=== PATIENT | male | born 1955 | race Caucasian/White ===

== ENCOUNTER 2022-03-26 08:41 | Outpatient (CLI) | payer BC, SELFPAY ==
[2022-03-26 14:25] LABS: Albumin* 4.8 g/dL (3.3-5.0); Chloride* 104 mmol/L (96-114)
[2022-03-26 14:26] LABS: Sodium* 141 mmol/L (135-149)
[2022-03-26 14:28] LABS: Alanine Aminotransferase* 24 U/L (4-50); Alkaline Phosphatase* 93 U/L (40-150); Aspartate Amino Transferase* 59 U/L (12-35); Bilirubin Total* 0.8 mg/dL (0.1-1.5); Blood Urea Nitrogen* 13 mg/dL (7-30); Carbon Dioxide* 20 mmol/L (20-32); Cholesterol* 197 mg/dL (90-199); Creatinine* 0.8 mg/dL (0.5-1.5); Estimated Glomerular Filt Rate 99 ml/min; Glucose* 99 mg/dL (60-115); Total Protein* 7.6 g/dL (6.0-8.3); Triglycerides* 190 mg/dL (40-149)
[2022-03-26 14:29] LABS: Calcium* 9.4 mg/dL (8.4-10.6); HDL Cholesterol* 80 mg/dL (>=40); LDL Cholesterol Calculated 79 mg/dL (<100)
[2022-03-26 14:59] LABS: PSA Screen* 1.13 ng/mL (0.10-4.00)
== END 2022-03-26 08:42 | disposition home or self-care (01) ==
PROVIDERS: PCP Family Medicine; Visit Provider Family Medicine
DX: Z00.00 Encounter for general adult medical examination without abnormal findings (principal); E78.5 Hyperlipidemia, unspecified; I10 Essential (primary) hypertension; E03.9 Hypothyroidism, unspecified; Z12.5 Encounter for screening for malignant neoplasm of prostate
CPT/HCPCS: 80053; 80061; 84153; 84443

== ENCOUNTER 2022-07-02 14:27 | Outpatient (CLI) | payer OTHER, SELFPAY | END 2022-07-02 14:28 | disposition home or self-care (01) | LOC: LKVREF 14:28 | PROVIDERS: PCP Family Medicine; Visit Provider Family Medicine | DX: Z01.818 Encounter for other preprocedural examination (principal); E03.9 Hypothyroidism, unspecified; I10 Essential (primary) hypertension; I82.409 Acute embolism and thrombosis of unspecified deep veins of unspecified lower extremity | CPT/HCPCS: 84443 ==

== ENCOUNTER 2022-09-26 13:45 | Outpatient (RCR) | payer OTHER, SELFPAY | END 2022-12-26 13:12 | disposition home or self-care (01) | PROVIDERS: PCP Family Medicine; Visit Provider Orthopaedic Surgery | DX: Z47.89 Encounter for other orthopedic aftercare (principal); Z51.89 Encounter for other specified aftercare | CPT/HCPCS: 97016; 97110; 97112; 97140; 97161 ==

== ENCOUNTER 2023-07-31 11:00 | Outpatient (CLI) | payer BC, SELFPAY | END 2023-07-31 11:01 | disposition home or self-care (01) | LOC: NFLDREF 08-01 06:35 | PROVIDERS: PCP Family Medicine; Visit Provider Family Medicine | DX: E03.9 Hypothyroidism, unspecified (principal); E78.00 Pure hypercholesterolemia, unspecified; I10 Essential (primary) hypertension; Z12.5 Encounter for screening for malignant neoplasm of prostate | CPT/HCPCS: 80053; 80061; 84443; G0103 ==

== ENCOUNTER 2023-08-15 12:46 | Outpatient (CLI) | payer BC, SELFPAY ==
[2023-08-15] MEDS: PERFLUTREN LIPID MICROSPHERES 2 ML VIAL IV (13:27)
[2023-08-15 13:50] VITALS: BP 160/78; PULSE 72
--- NOTE | 2023-08-15 13:52 | P.STN_ITS ---
Stress Test Note Date Date Seen: 08/15/23 Date of test: 08/15/23 Providers Primary care provider: Sergio Darden Stress test physician: Lydia Guardado Stress Test Note Stress test ordered: Stress Echo Indication for test: CAD found on CT [facility] Results discussion: Resting EKG: Sinus bradycardia, 51 beats per minute. Low-voltage QRS. Some artifact. Nonspecific T-wave changes V1 through V3. Resting blood pressure: 174/102 Stress test: Patient consent was obtained for stress test ordered. He followed a standard [employer] protocol treadmill exercise stress test with echo. Patient required termination of the stress test as he could not continue with the p hysical level he was at at this stress test plus his ankle was bothering him. He had no chest pain, no significant dyspnea noted. Unfortunately, his heart rate never reached goal, he barely was over 100 beats per minute even at the termination of the stress test. 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 He exercised to 7 minutes 12 seconds consistent with 8.7 Mets. His heart rate really was not at 132 beats per minute maximum, there was significant artifact and I was able to follow in 1 lead on the monitor that patient really only had heart rate into the low 100s. Unfortunately, there was some type of air with the echo images where they were not captured or saved. The registered pharmacy technician could see preliminarily that the images looked good but they are not saved to be read by a pulling machine operator. Impression: Uninterpretable stress test as patient really had suboptimal heart rate, was not anywhere near the target heart rate. He states he had withheld his propranolol for 2 days prior. This patient probably should be considered to be referred to Cardiology or have a Lexiscan test done. I do not think trying to do another exercise stress test when he does not mount appropriate heart rate is going to be beneficial. He is discharged from here in stable condition and asymptomatic. Follow up suggested: Follow-up with primary care provider, consider Lexiscan or cardiology referral.
== END 2023-08-15 12:47 | disposition home or self-care (01) ==
LOC: STRESS 12:47
PROVIDERS: PCP Family Medicine; Visit Provider Family Medicine
DX: I25.10 Atherosclerotic heart disease of native coronary artery without angina pectoris (principal); R06.09 Other forms of dyspnea
CPT/HCPCS: 93016; 93325; 93351; Q9957

== ENCOUNTER 2024-12-31 11:45 | Outpatient (CLI) | payer BC, SELFPAY | END 2024-12-31 11:46 | disposition home or self-care (01) | PROVIDERS: PCP Family Medicine; Visit Provider Family Medicine | DX: E03.9 Hypothyroidism, unspecified (principal); E78.5 Hyperlipidemia, unspecified; I10 Essential (primary) hypertension; I25.10 Atherosclerotic heart disease of native coronary artery without angina pectoris; I82.409 Acute embolism and thrombosis of unspecified deep veins of unspecified lower extremity; R53.83 Other fatigue; Z00.00 Encounter for general adult medical examination without abnormal findings | CPT/HCPCS: 80053; 84443; G0103 ==